=== PATIENT | male | born 1945 | race Caucasian/White ===

== ENCOUNTER → 2017-05-17 | Outpatient (CLI) | payer MEDICARE, OTHER ==
[~2017-05-17] MED LIST: APAP500; ASPIRIN81 M2 PO; AZOPT OPHTH1 %/10 M1; CALCIUM; CALCIUM 600 +1 EA11 PO; CALCIUM 600 +1 EAC5 PO; CARDIZEM CD120 MG PO; COMBIGAN EYE DR10 ML OPHTHALMIC; COUMADIN 2.5MG2.5 M1 PO; COUMADIN 4 MG TA4 M1 PO; COUMADIN 5 MG TA5 M1; CRESTOR10 MG; DIGOXIN; DYAZIDE 37.5-21 EACH PO; FELODIPINE 5 MG5 M1; FELODIPINE ER10 MG; FELODIPINE ER10 MG PO; FELODIPINE ER5 MG PO; FISH OIL 1,001000 M2 PO; FISHOIL PO; FLOMAX0.4 MG PO; GEMFIBROZIL 60600 MG PO; GLUCOPHAGE XR500 MG PO; LANOXIN 0.120.125 M3 PO; LANOXIN 0.250.25 MG PO; LIPITOR10 MG PO; LISINOPRIL20 MG PO; LISINOPRIL40 MG PO; LUMIGAN2.5 M1; MAXZIDE 75-501 EACH PO; METAMUCIL0.52 GM; METFORMIN HCL500 MG PO; MINIPRIN81 MG PO; MULTIVITAMINS PO; OSTEO BIFLEX PO; OXYIR5 MG; PERCOCET 5-3251 EACH PO; PRED FORTE 1% EY5 M1; PROPAFENONE 22225 M1 PO; PROPAFENONE HC325 M1 PO; PROTONIX40 M1 PO; RYTHMOL225 MG; SORINE 80 MG TA80 M1 PO; VIGAMOX3 M1; XALATAN2.5 ML; XALATAN2.5 ML OPHTHALMIC; [UNRECOGNIZED DRUG - OTHER] PO; [UNRECOGNIZED DRUG - REMARK] IJ
--- NOTE | 2017-05-17 17:25 | 2DMMODE ---
[place] [address] 2 D/M-MODE ECHOCARDIOGRAM Name: NATALIE BOWERS Room: [facility]#: [id number] Admission: 05/17/17 Attend Phys: Evan Contreras, Discharge: Date of : 41 Date of Service: 05/17/17 1724 Report #: [id number] THIS REPORT FOR: //name// APPROVED REPORT Study performed: 05/17/2017 10:06:00 EXAM: Comprehensive 2D, Doppler, and color-flow Echocardiogram Patient Location: Out-Patient Status: routine BSA: 2.13 HR: 60 bpm BP: 111/66 mmHg Other Information Study Quality: Good Indications Murmur 2D Dimensions LVEF(%): 51.15 (>50%) IVSd: 13.02 (7-11mm) LVOT Diam: 20.92 (18-24mm) LVDd: 48.08 mm PWd: 13.02 (7-11mm) Ascending Ao: 32.56 (22-36mm) LVDs: 35.53 (25-40mm) Aortic Root: 35.19 mm Russo's LVEF: 51.15 % Volumes Left Atrial Volume (Systole) LA ESV Index: 30.30 mL/m2 Aortic Valve AoV Peak Juan Manuel.: 1.94 m/s AO Peak Gr.: 15.11 mmHg LVOT Max P.45 mmHg AO Mean Gr.: 8.77 mmHg LVOT Mean P.71 mmHg LVOT Max V: 1.17 m/s AO V2 VTI: 41.11 cm LVOT Mean V: 0.75 m/s FRAN (VTI): 2.30 cm2 LVOT V1 VTI: 27.56 cm Mitral Valve E/A Ratio: 0.87 MV Decel. Time: 236.20 [place] [address] 2 D/M-MODE ECHOCARDIOGRAM Name: NATALIE BOWERS Room: [facility]#: [id number] Admission: 05/17/17 Attend Phys: Evan Contreras, Discharge: Date of : 41 Date of Service: 05/17/17 1724 Report #: [id number] MV E Max Juan Manuel.: 0.79 m/s MV PHT: 68.50 ms MVA (PHT): 3.21 cm2 TDI E/Lateral E': 8.78 E/Medial E': 7.90 Medial E' Juan Manuel.: 0.10 m/s Lateral E' Juan Manuel.: 0.09 m/s Pulmonary Valve PV Peak Juan Manuel.: 0.96 m/s PV Peak Gr.: 3.71 mmHg Left Ventricle The left ventricle is normal size. There is normal LV segmental wall motion. Mild concentric left ventricular hypertrophy. Left ventricular systolic function is normal. The left ventricular ejection fraction is within the normal range. LVEF is 55-60%. Grade I - abnormal relaxation pattern. Right Ventricle The right ventricle is normal size. The right ventricular systolic function is normal. Atria Left atrium is mildly dilated. The right atrium size is normal. Aortic Valve Mild aortic valve sclerosis. No aortic regurgitation is present. There is no aortic valvular stenosis. Mitral Valve The mitral valve is normal in structure. Mild mitral regurgitation. No evidence of mitral valve stenosis. Tricuspid Valve The tricuspid valve is normal in structure. Trace tricuspid regurgitation. Pulmonic Valve Pulmonic valve is not well visualized. There is no pulmonic valvular regurgitation. Great Vessels The aortic root is normal in size. IVC is normal in size and collapses with >50% [place] [address] 2 D/M-MODE ECHOCARDIOGRAM Name: ROBINSONNATALIE Darvin Room: [facility]#: [id number] Admission: 05/17/17 Attend Phys: Evan Contreras, Discharge: Date of : 41 Date of Service: 05/17/17 1724 Report #: [id number] Pericardium There is no pericardial effusion. <Conclusion> Mild concentric left ventricular hypertrophy. LVEF is 55-60%. Left atrium is mildly dilated. Mild aortic valve sclerosis. Mild mitral regurgitation. <ELECTRONICALLY SIGNED> By: Camilo Leyva MD, FACC 05/17/171723 23 23 Camilo Leyva MD, FACC /INF
== END ==
LOC: M.CRD 09:43
DX: I34.0 Nonrheumatic mitral (valve) insufficiency (principal); I51.7 Cardiomegaly; I35.8 Other nonrheumatic aortic valve disorders; I10 Essential (primary) hypertension; I95.1 Orthostatic hypotension; I48.0 Paroxysmal atrial fibrillation

== ENCOUNTER → 2017-08-01 | Outpatient (CLI) | payer MEDICARE, OTHER | LOC: M.RAD 11:34 | DX: I10 Essential (primary) hypertension (principal); R07.81 Pleurodynia ==

== ENCOUNTER 2018-12-20 19:51 | Inpatient (IN) | payer MEDICARE, OTHER ==
[~2018-12-20] VITALS: Ht 188 cm; Wt 81.6 kg
[2018-12-20 19:53] VITALS: BP 178/89
[2018-12-20] MEDS ORDERED: CLONIDINE0.1 TRANSDERM (20:03)
[2018-12-20] MEDS ORDERED: LISINOPRIL-HCT1 EAC2 PO (20:04)
[2018-12-20 20:24] LABS: ABSOLUTE BASOPHILS 0.1 thou/uL (0.0-0.2); ABSOLUTE EOSINOPHILS 0.3 thou/uL (0.0-0.7); ABSOLUTE LYMPHOCYTES 2.3 thou/uL (0.8-5.3); ABSOLUTE MONOCYTES 0.9 thou/uL (0.0-1.2); ABSOLUTE NEUTROPHILS 2.9 thou/uL (1.6-8.1); BASOPHILS 1.1 %; EOSINOPHILS 4.8 %; HEMATOCRIT 38.2 % (42.0-52.0); HEMOGLOBIN 12.8 gm/dL (14.0-18.0); LYMPHOCYTES 36.2 %; MCH 28.7 pg (26.0-34.0); MCHC 33.5 g/dL (28.0-37.0); MCV 85.8 fL (80.0-100.0); MONOCYTES 13.4 %; MPV 8.3 fl. (7.2-11.1); NUCLEATED RBCS 0 /100WBC; PLATELET COUNT* 276 thou/uL (150-400); POLYS 44.5 %; RBC 4.45 mil/uL (4.50-6.00); RDW-CV 14.2 % (10.5-14.5); WBC 6.4 thou/uL (4.0-11.0)
[2018-12-20 20:31] LABS: ANION GAP 5 mmol/L (7-16); BUN 15 mg/dL (7-18); CALCIUM 8.8 mg/dL (8.5-10.1); CHLORIDE 95 mmol/L (98-107); CO2 33 mmol/L (21-32); GLUCOSE 210 mg/dL (70-99); SODIUM 133 mmol/L (136-145)
[2018-12-20 20:34] LABS: APTT 28.9 Seconds (25.0-31.3); INR 1.6; PROTIME 16.3 Seconds (9.20-11.50)
[2018-12-20 20:40] LABS: ALBUMIN 3.3 g/dL (3.4-5.0); ALKALINE PHOSPHATASE 79 U/L (46-116); SGOT 14 U/L (15-37); SGPT 17 U/L (30-65); TOTAL BILIRUBIN 0.2 mg/dL (<0.1-1.0); TOTAL PROTEIN 7.1 g/dL (6.4-8.2); TROPONIN-I LEVEL <0.06 ng/mL (<0.06)
[2018-12-20 22:30] VITALS: BP 155/95
[2018-12-20 22:58] VITALS: BP 190/92
[2018-12-21 06:02] VITALS: BP 176/97
--- NOTE | 2018-12-21 06:03 | NUR ---
PATIENT REPORTED PAIN 11/14. GAVE FENTANYL Q4 THROUGH SHIFT, LAST DOSE 04:30. HAS BEEN NPO SINCE MIDNIGHT AND WAS NOT ABLE TO URINATE ON OWN. AT 0500 DID A BLADDER SCAN AND 500 MLS URINE RETAINED. STRAIGHT CATH ABLE TO GET 300 MLS OUT. NS RUNNING AT 100 ML/HR. ORTHO TO CONSULT TODAY. PATIENT WAS NOT ABLE TO SCOOT TO SIDE OF BED OR STAND. HE DID NOT WANT TO ATTEMPT TO GET OUT OF BED OVERNIGHT.
[2018-12-21 07:40] VITALS: BP 192/116
[2018-12-21 11:40] LABS: INR 1.4; PROTIME 14.4 Seconds (9.20-11.50)
--- NOTE | 2018-12-21 11:49 | EKG ---
[place] [address] ELECTROCARDIOGRAM REPORT Name: NATALIE BOWERS Room: [address] IN M.R.#: [id number] Admission: 12/20/18 Attend Phys: Cindy Coates MD Discharge: Date of : 41 Report #: [id number] THIS REPORT FOR: //name// [facility] ED Test Date: 2018-12-20 Test Time: 20:06:51 Pat Name: NATALIE BOWERS Department: Room: [facility] Gender: M Survey Questionnaire Designer: AJ : 1945 Requested By: Kris More Order Number: [id number] : Indra Meehan Measurements Intervals [place] Rate: 51 P: 39 MO: 202 QRS: 45 QRSD: 116 T: 27 QT: 497 QTc: 458 Interpretive Statements Sinus rhythm Nonspecific intraventricular conduction delay Compared to ECG 02/09/2017 13:45:32 Intraventricular conduction delay now present Electronically Signed On 12-21-2018 11:49:30 CDT by Indra Meehan [email or web address] <ELECTRONICALLY SIGNED> By: Indra Meehan MD, [facility] 12/21/18 1149 05 05 Indra Meehan MD, [facility] /EPI
--- NOTE | 2018-12-21 16:59 | NUR ---
SW met with pt to complete initial assessment, introduce self, and SW role. Pt alert, oriented. Pt lives at home with his who he shared works in surgery at [employer]. Pt said he watched his grandchildren frequently. Pt normally fairly independent but due to vision impairment, pt no longer drives. Pt has children and friends who are supportive and pt says friends provide rides at times. Pt unsure of dc needs at this time or if he will feel safe to return home at dc vs wondering about rehab or SNF, possibly HH to follow if pt safe to dc home when medically ready to dc. SW to continue to follow to assist with safe dc planning.
[2018-12-21 17:00] VITALS: BP 175/97
--- NOTE | 2018-12-21 17:52 | NUR ---
ASSUMED CARE OF PATIENT AT APPROX 0730. ALERT AND ORIENTED X4. PAIN MANAGED WITH IV AND ORAL PAIN MEDICATIONS. PATIENT HAD SOME NAUSEA AND VOMITING THIS MORNING, MANAGED WITH ZOFRAN AND HELD IV PAIN MEDICATION, NO MORE COMPLAINTS OF NAUSEA OR VOMITING. PATIENT UP WITH STAND BY ASIST TO THE BATHROOM SEVERAL TIME TO TRY TO VOID WITH NO SUCCESS, BLADDER SCAN REVEALED GREATER THAN 700. DR HEATH PAGED AND ORDERED TO INSERT A FELDER AND CONSULT UROLOGY. I WAS UNABLE TO INSERT A 16 GREEK FELDER BUT A 14 GREEK WAS EASILY INSERTED. PATIENT HAD 750 OUT INSTANTLY. SHOULDER IMMOBILIZER PLACED IN LEFT ARM THIS MORNING, NON WEIGHT BEARING STATUS MAINTAINED ON LEFT UPPER EXTREMITY. PATIENT RESTING IN BED AT THIS TIME AND FEELS MUCH BETTER NOW THAT HIS BLADDER IS EMPTY. FALL PRECAUTIONS IN PLACE. CALL LIGHT WITHIN REACH. HOURLY ROUNDS COMPLETED. WILL CONTINUE TO MONITOR.
[2018-12-21 19:40] VITALS: BP 187/108
[2018-12-22] VITALS: BP 176/93
[2018-12-22 04:40] LABS: HEMOGLOBIN 12.4 gm/dL (14.0-18.0); MCHC 33.5 g/dL (28.0-37.0); MCV 86.5 fL (80.0-100.0); MPV 8.8 fl. (7.2-11.1); RBC 4.28 mil/uL (4.50-6.00); RDW-CV 14.1 % (10.5-14.5); WBC 9.6 thou/uL (4.0-11.0)
[2018-12-22 04:45] LABS: INR 1.4; PROTIME 13.8 Seconds (9.20-11.50)
[2018-12-22 04:57] LABS: CALCIUM 8.5 mg/dL (8.5-10.1); CREATININE 0.6 mg/dL (0.6-1.3); MAGNESIUM 1.9 mg/dL (1.8-2.4); POTASSIUM 3.8 mmol/L (3.5-5.1)
--- NOTE | 2018-12-22 04:58 | NUR ---
PT ALERT AND ORIENTED. VSS ON RA. ASSESSMENT ODCUMENTED. PTMEDS GIVEN PER EMAR. PAIN MED GIVEN X1 THIS SHIFT. RELIEVE NOTED. NO AMBULATION NOTED THIS SHIFT. CALL LIGHT WITHIN REACH. HOURLY ROUNDINGS MADE. WILL CONTINUE TO MONITOR.
[2018-12-22 08:53] VITALS: BP 163/91
--- NOTE | 2018-12-22 10:15 | NUR ---
REHAB CONSULT NOTED, AWAIT EVAL BY WILL FOLLOW
--- NOTE | 2018-12-22 14:40 | NUR ---
PATIENT'S STATES HE IS "NOT RIGHT" AT THIS TIME. PATIENT ORIENTED X3, STATES HE WAS IN [place], REORIENTED TO PLACE. BS 183MGDL, 99.1F-101-20 119/113, 89-90%RA. O2 2L/NC, SAT UP TO MID 90s. LS NOTED DIM TO. NOTIFIED. ORDERS REC'D. ~TJRN
[2018-12-22 15:16] LABS: URINE BILIRUBIN NEGATIVE (Negative); URINE BLOOD 2+ (Negative); URINE CLARITY CLEAR; URINE COLOR YELLOW; URINE GLUCOSE-RANDOM NEGATIVE (Negative); URINE KETONES TRACE (Negative); URINE LEUKOCYTES-REFLEX NEGATIVE (Negative); URINE NITRITE-REFLEX NEGATIVE (Negative); URINE PROTEIN 1+ (Negative); URINE UROBILINOGEN 0.2 E.U./dl (0.2-1.0)
[2018-12-22 15:31] LABS: SQUAMOUS 0-3 Few /LPF (0-3)
[2018-12-22 15:32] LABS: URINE WBC-REFLEX 6-15 Few /HPF (0-5)
[2018-12-22 15:33] LABS: CASTS None Seen /LPF (None Seen); CRYSTALS None Seen /LPF (None Seen); MUCUS 0-3 Light strn/LPF (None Seen); URINE RBC 3-10 Few /HPF (0-2)
[2018-12-22 16:41] VITALS: BP 160/105
--- NOTE | 2018-12-22 18:49 | NUR ---
PATIENT ALERT AND ORIENTED X3 AT THIS TIME. O2 2L/NC 92%. REPORT FROM [facility] MECHANIC STATES PATIENT PULLING ON CATHETER, PATIENT REORIENTED. IV SITE NOTED WNL. FELDER CATH NOTED PATENT, YELLOW URINE IN BAG. SITTING UP IN RECLINER AT THIS TIME. ~TJRN
--- NOTE | 2018-12-22 18:56 | NUR ---
IMMOBILIZER IN PLACE TO LUE. HRLY ROUNDING DONE. CALL LIGHT IN REACH. ~TJRN
--- NOTE | 2018-12-22 19:05 | NUR ---
PATIENT SITTING ON SIDE OF BED, CNAs X2 STATES PATIENT BECOME WEAK, MORE CONFUSED WHEN TRANSFERRING FROM RECLINER TO BED. STATES PATIENT'S EYE ROLLED TOWARD BACK OF HEAD. PATIENT STATES THAT HE FEELS SWEATY, NO PERSPIRATION FELT. VS TAKEN AND MESSAGE SENT TO DR. Marcano.0F-70-20, 179/104, 93% 2L/NC. ORDERS REC'D. SECOND RN PRESENT. ~CHELI
[2018-12-22 20:00] VITALS: BP 199/122
[2018-12-22 22:30] VITALS: BP 171/102
[2018-12-23] VITALS: BP 183/111
[2018-12-23 01:00] VITALS: BP 149/101
[2018-12-23 03:42] LABS: INR 1.7; PROTIME 17.4 Seconds (9.20-11.50)
[2018-12-23 04:00] VITALS: BP 156/93
--- NOTE | 2018-12-23 04:32 | NUR ---
PT ORIENTED TO SELF, OTHERWISE CONFUSED THIS SHIFT. PT WAS HOWEVER ALERT AND ORIENTED ON PREVIOUS NIGHT. PT UNDERSTANDS SOMETIMES THAT HE IS CONFUSED AND VOICES AND APOLOGY EVERYTIME HE REGAINS SELF. BP WAS HIGH BEGINNING OF SHIFT. HIGHEST BP THIS SHIFT WAS 199/122, HR OF 98. HYDRALAZINE WAS ORDERED BY DR CANNON. HYDRALAZINE WAS GIVEN TWICE THIS SHIFT. BP AT 4AM WAS 156/89, HR 82. PT SEEMED ANXIOUS AND UNABLE TO SLEEP. BENADYRL AND MELATONIN GIVEN TO AID PT SLEEP. PT SLEPT AFTERWARDS AND HAS BEEN SLEEPING. HOURLY ROUNDS MADE. FALL PRECAUTION IN PLACE. UA SHOWED MODERATE URINE BACTERIA. AWAITING URINE CULTURE RESULTS. CALL LIGHT WITHIN REACH. WILL CONTINUE TO MONITOR.
[2018-12-23 08:04] VITALS: BP 147/99
[2018-12-23 16:00] VITALS: BP 113/71
--- NOTE | 2018-12-23 18:29 | NUR ---
PATIENT COOPERATIVE W/ ASSESS AND CARES THIS SHIFT. AMB X3 IN RM W/ CANE, GAIT BELT AND X2 ASST. UP TO SHOWER THIS AFTERNOON W/ X2 ASST. AMB 12-20FT EA TIME. GAIT NOTED WEAK AND UNSTEADY. IMMOBILIZER TO LUE IN PLACE. IV SL NOTED WNL, FLUSHES EASILY W/ +BLOOD RETURN. PRESENT IN THIS AFTERNOON. FELDER CATH NOTED PATENT W/ YELLOW URINE. RESTING IN BED AT THIS TIME. CALL LIGHT IN REACH. HRLY ROUNDS DONE. HOB UP TO PATIENT COMFORT. ~TJRN
[2018-12-23 19:45] VITALS: BP 134/79
--- NOTE | 2018-12-24 05:04 | NUR ---
PT SLEPT WELL THIS SHIFT. CALM APPROPRIATE. L ARM IMMOBILIZER ON. R KNEE SWOLLEN AND PAINFUL, VOLTAREN GEL APPLIED ORDERED WITH GOOD RESULT, TYLENOL GIVEN. FELDER DRAINING YELLOW URINE. RFASL IV. AM LABS DRAWN. HS ACCUCHECK 219, PT REFUSING INSULIN. EYE DROPS GIVEN ORDERED, POOR VISION. VSS. CLONIDINE PATCH STILL PRESENT L CHEST. CM FOLLOWING FOR DISCHARGE PLAN-HOME VS SNF. CALL LITE IN EASY REACH, BED ALARM ON OVERNIGHT FOR SAFETY.
[2018-12-24 05:24] LABS: HEMATOCRIT 33.8 % (42.0-52.0); HEMOGLOBIN 11.4 gm/dL (14.0-18.0); MCH 28.8 pg (26.0-34.0); MCHC 33.6 g/dL (28.0-37.0); MCV 85.6 fL (80.0-100.0); MPV 8.8 fl. (7.2-11.1); RBC 3.95 mil/uL (4.50-6.00); WBC 9.2 thou/uL (4.0-11.0)
[2018-12-24 05:30] LABS: CALCIUM 8.6 mg/dL (8.5-10.1); CREATININE 0.7 mg/dL (0.6-1.3); POTASSIUM 3.3 mmol/L (3.5-5.1)
[2018-12-24 05:31] LABS: INR 1.6; PROTIME 16.6 Seconds (9.20-11.50)
[2018-12-24 07:45] VITALS: BP 144/86
[2018-12-24 16:00] VITALS: BP 152/84
--- NOTE | 2018-12-24 18:03 | NUR ---
PATIENT ALERT AND ORIENTED X 4. VITAL SIGNS STABLE ON ROOM AIR. AFEBRILE. UP WITH WITH ASSISTANCE. TOLERATED THERAPY AND SAT IN CHAIR. LEFT ARM IMMOBILIZER ON. IV PATENT AND SALINE LOCKED. FOLET PATENT AND DRAINING YELLOW URINE. PATIENT REFUSING INSULIN. EYE DROPS GIVEN ORDERED. HOURLY ROUNDS MAINTAINED THROUGHOUT THE SHIFT. CALL LIGHT WITHIN REACH. NURSING WILL CONTINUE TO MONITOR.
[2018-12-24 21:18] VITALS: BP 175/97
[2018-12-25 04:31] LABS: INR 1.6; PROTIME 15.9 Seconds (9.20-11.50)
--- NOTE | 2018-12-25 05:44 | NUR ---
PATIENT WAS UP THROUGHOUT THE NIGHT WITH CONFUSTION TO WHERE HE WAS AND UNABLE TO LOCATE PERSONAL ITEMS. HE WAS REORIENTED TO SITUATION AND PLACE SEVERAL TIMES AND SEEMED TO REMAIN CALM AND UNDERSTOOD. I GAVE HIM 5MG OXYCODONE AT 2130 AND HE DID NOT REPORT ANY PAIN FOR THE REMAINDER OF SHIFT BUT REPORTED FEELING OUT OF IT AND CONFUSED BECAUSE OF THE DRUGS. HE REQUESTED TO USE THE COMMODE TO ATTEMPT AT BM TWICE WITH NO SUCCESS. HE SEEMED A LITTLE ANXIOUS BUT I KEPT DIRECTING HIM TO HIS PERSONAL ITEMS AND HIS WAS ABLE TO COME IN BY 0500. HE SEEMED CALM AFTER THAT. IV IS SALINE LOCKED AND MEDS ARE PO. NO WORSENING OF CONDITION. FELDER OUTPUT AT 0530 WAS 900 ML. WILL CONTINUE TO MONITOR.
[2018-12-25 10:02] VITALS: BP 141/98
--- NOTE | 2018-12-25 14:52 | NUR ---
DISCUSSED PT.WITH [facility]. SHE SAID SHE WOULD TALK WITH . ,JAIMEE,HERE AFTER WORK. DISCUSSED POC WITH HER. SHE SAID PT.IS NOT CONFUSED AT HOME. CM WILL FOLLOW.
[2018-12-25 15:55] VITALS: BP 182/135
[2018-12-25 16:37] VITALS: BP 137/75
--- NOTE | 2018-12-25 18:16 | NUR ---
ASSUMED CARE OF PATIENT AT APPROX 0730. ALERT AND ORIENTED X3. ASSESSMENT COMPLETED AND CHARTED. VSS ON ROOM AIR. PAIN MANAGED WITH ORAL PAIN MEDICATION. PATIENT SHOWING INCREASED CONFUSION THIS AFTERNOON, DID NOT KNOW WHERE HE WAS AND WAS YELLING OUT RATHER THAN USING HIS CALL LIGHT. PATIENT YELLED "HELP" SEVERAL TIMES VERY LOUDLY. I WENT TO THE ROOM AND ASKED WHY HE WAS YELLING. PATIENT STATED "I HAVE TO YELL BECAUSE NOONE WILL LISTEN." I STATED THAT I HAD JUST COME OUT OF THE ROOM A FEW MOMENTS AGO. PATIENT STATED "I WANT TO GO BACK TO MY ROOM." I STATED THAT HE IS IN HIS ROOM. PATIENT HAD NEED REORIENTATION SEVERAL TIMES THIS AFTERNOON. UNSURE IF THIS IS BASELINE BEHAVIOR AT HOME, WILL SPEAK TO WHEN SHE COMES BACK TO THE HOSPITAL. SHOULDER IMMOBILIZER IN PLACE AND NON WEIGHT BEARING STATUS MAINTAINED. FALL PRECAUTIONS IN PLACE. CALL LIGHT WITHIN REACH. HOURLY ROUNDS COMPLETED. WILL CONTINUE TO MONITOR.
[2018-12-25 22:59] VITALS: BP 173/108
[2018-12-26 04:42] LABS: CALCIUM 8.6 mg/dL (8.5-10.1); CREATININE 0.6 mg/dL (0.6-1.3); POTASSIUM 3.3 mmol/L (3.5-5.1)
[2018-12-26 04:48] LABS: HEMOGLOBIN 11.1 gm/dL (14.0-18.0); MCH 28.9 pg (26.0-34.0); MCHC 33.8 g/dL (28.0-37.0); MCV 85.7 fL (80.0-100.0); MPV 7.8 fl. (7.2-11.1); RBC 3.85 mil/uL (4.50-6.00); RDW-CV 13.7 % (10.5-14.5); WBC 8.4 thou/uL (4.0-11.0)
[2018-12-26 04:53] LABS: INR 2.1; PROTIME 20.9 Seconds (9.20-11.50)
--- NOTE | 2018-12-26 05:51 | NUR ---
PATIENT RESTED WELL THROUGH SHIFT. WOKE UP TWICE SLIGHTLY CONFUSED. ORIENTED HIM BACK TO WHERE HE WAS AND WHAT TIME IT WAS. HE STILL REFUSED INSULIN AND DID NOT REQUEST ANY PAIN MEDICATION. HIS GAIT IS STILL UNSTEADY AND REQUIRES ASSISTANCE TO GET UP. HIS FELDER OUTPUT HAS IMPROVED WITH FLOMAX. NO WORSENING OF CONDITIONS OR PAIN. HAS CLONIDINE AND LIDOCAINE PATCH STILL. WILL CONTINUE TO MONITOR.
[2018-12-26 07:20] VITALS: BP 141/85
[2018-12-26 11:30] VITALS: BP 134/94
[2018-12-26 16:00] VITALS: BP 130/90
--- NOTE | 2018-12-26 16:24 | NUR ---
SPOKE WITH ,JAIMEE, ON PHONE. DISCUSSED PLAN OF CARE . DISCUSSED PTS HELP AT HOME AT DISCHARGE IF HE WERE TO GO TO INPT.REHAB. SHE SAID SHE COULD ARRANGE FOR TIME OFF FROM WORK IF SHE KNEW OF AN APPROX DISCHARGE DATE. EXPLAINED TEAM CONFERENCES. DISCUSSED PT.'S CONFUSION AT TIMES. SHE SAID HE IS NEVER LIKE THAT AT HOME. WILL PASS ON INFORMATION TO [facility].
--- NOTE | 2018-12-26 16:30 | NUR ---
ASSUMED CARE OF PATIENT AT APPROX 0730. ASSESSMENT COMPLETED AND CHARTED. VSS ON ROOM AIR. ALERT AND ORIENTED X2-3. PATIENT IS CONFUSED ABOUT WHERE HE IS AND HAS TO BE REDIRECTED AT TIMES. SOMETIMES YELLS OUT INSTEAD OF USING CALL LIGHT. MINIMAL COMPLAINTS OF PAIN MANAGED WITH ORAL MEDICATION. PATIENT UP WITH STAFF USING GAIT BELT AND CAME. WORKING WITH THERAPIES AND PROGRESSING TOWARD GOALS. FALL PRECAUTIONS IN PLACE. CALL LIGHT WITHIN REACH. HOURLY ROUNDS COMPLETED. WILL CONTINUE TO MONITOR.
[2018-12-26 20:20] VITALS: BP 159/94
--- NOTE | 2018-12-27 06:15 | NUR ---
Oriented x 2, he gets confused and forgetful. Carlson cath has has a lot of output. L shoulder has been in immobilizer all of this shift. Potassium replaced last evening and this am it is in normal range. He denies need for pain meds. He has slept well.
[2018-12-27 08:30] VITALS: BP 138/89
--- NOTE | 2018-12-27 10:43 | NUR ---
ORDERS NOTED FOR DC TO REHAB. SPOKE WITH [facility], THEY WILL ACCEPT TODAY. UPDATED PT AND CALLED /JAIMEE TO UPDATE. PT TO GO TO RM [address] [facility] AWARE
--- NOTE | 2018-12-27 11:16 | NUR ---
Nutrition: Pt seen for LOS. Admitted with humerus FX. CHO controlled diet. Pt stated he is eating enough; it just doesn't taste very good to him. RD provided pt with a menu and explained alternative choices. Pt grateful. Wt: 180#. Noted discharge orders for today. BG 154, alb 3.3. Consider mild to low nutrition risk.
[2018-12-27 15:01] VITALS: BP 138/89
--- NOTE | 2018-12-27 15:28 | NUR ---
WOUND CARE NOTE: WAS REQUESTED TO SEE PATIENT FOR SKIN TEARS TO LEFT ARM PATIENT PRESENTS WITH PARTIAL THICKNESS SKIN LOSS TO THE POSTERIOR ASPECT OF HIS LEFT ARM. IT IS BELIEVED THAT THE IMMOBILIZER RUBBED AGAINST HIS SKIN. MOIST, PINK/RED WOUND BED. DRAINING SEROSANGUINEOUS DRAINAGE. APPROXIMATELY 2.5X5X0.1. CLEANSED WITH WOUND CLEANSER, PATTED DRY. APPLIED XEROFORM GAUZE AND SECURED WITH BORDERED FOAM. PATIENT TOLERATED DRESSING CHANGE WELL. EXTENSIVE BRUISING NOTED TO UPPER LEFT ARM AND LEFT SIDE R/T FALL. BLANCHABLE REDNESS NOTED TO LEFT UPPER BACK, UNSURE OF ETIOLOGY. NO DRAINGAE, FLUCTUANCE OR INDURATION. IT IS RAISED IN COMPARISON TO THE SURROUNDING TISSUES. RECOMMEND CHANGE DRESSING THE ARM DAILY SOFT CAST PADDING UNDERNEATH IMMOBILIZER TO ASSIST WITH PROTECTION OF SKIN
--- NOTE | 2018-12-27 16:20 | CON ---
[address] [address] CONSULTATION Name: NATALIE BOWERS Room: [address] IN M.R.#: [id number] Admission: 12/20/18 Attend Phys: Cindy Coates MD Discharge: 12/27/18 Date of : 41 Report #: [id number] THIS REPORT FOR: //name// CC: Camilo Del Rosario DATE OF SERVICE: 12/22/2018 UROLOGY CONSULTATION REASON FOR CONSULTATION: Urinary retention. HISTORY OF PRESENT ILLNESS: The patient is a 73-year-old male known to Dr. Amado with a history of prostate cancer. I reviewed his outside records from clinic. He had a prostatectomy in 2004 along with adjuvant radiation and he was on intermittent Lupron for a while, but starting in 2015, it sounds like he started Eligard continuously and is also now currently on Casodex daily. His last PSA in June was 3.4 and he had imaging around that time that showed no evidence of metastatic disease. So, the plan was to stay on Eligard and Casodex. He is actually due to see Dr. Amado this coming week. He was admitted after a fall and sustained an arm fracture. He has also subsequently developed urinary retention. Apparently, nursing had some difficulty placing catheter yesterday, but were eventually successful and has been draining fine ever since. He is currently on Flomax. PAST MEDICAL HISTORY: Prostate cancer with history above, AFib, atrial flutter, hypertension, diabetes, glaucoma. PAST SURGICAL HISTORY: Includes prostatectomy, knee surgery and shoulder surgery. ALLERGIES: HYDROCODONE. SOCIAL HISTORY: The patient is a nonsmoker currently, but previously smoked. He denies alcohol use. FAMILY HISTORY: Noncontributory. MEDICATIONS: Reviewed. Please see inpatient medical record. REVIEW OF SYSTEMS: Twelve-point review of systems is performed and is negative except as noted above in HPI. PHYSICAL EXAMINATION: VITAL SIGNS: Temperature is 36.9, pulse 78, respirations 16, [place] [address] CONSULTATION Name: NATALIE BOWERS Room: [address]#: [id number] Admission: 12/20/18 Attend Phys: Cindy Coates MD Discharge: 12/27/18 Date of : 41 Report #: [id number] 163/91. He is 97% on room air. GENERAL: He is a well-developed, well-nourished, thin white male in no acute distress. He is alert and oriented. HEENT: Normocephalic, atraumatic. RESPIRATIONS: Unlabored. HEART: Regular. ABDOMEN: Soft, nontender, nondistended. GENITOURINARY: He has a Carlson catheter in place, a 14-Yakut draining clear urine. He has some dried blood at the meatus. Testicles are unremarkable. EXTREMITIES: Without edema. He does have an arm sling in place. LABORATORY STUDIES: All reviewed. He has normal renal function. ASSESSMENT AND PLAN: 1. Urinary retention. 2. History of prostate cancer, status post prostatectomy and radiation with PSA recurrence, currently on Eligard and Casodex, follows with Dr. Amado PLAN: Leave the Carlson for now. He says he has an appointment with Dr. Amado this coming week and he can attempt a voiding trial then, would continue Flomax as an outpatient. I did take the liberty of adding Casodex to his inpatient medications as he should be on this. He is also due for Eligard injection at the time of his clinic visit. He is okay to discharge from standpoint with Carlson catheter and followup with Dr. Amado as scheduled. <ELECTRONICALLY SIGNED> By: Brionna Lui MD 12/27/18 1620 [id number] [id number] Lui MD /nt
[2018-12-27] MEDS ORDERED: CASODEX 50 MG T50 M1 PO (17:03)
[2018-12-27] MEDS ORDERED: BENADRYL25 MG PO (17:06)
[2018-12-27] MEDS ORDERED: HUMALOG100 UNIT/1 SUBQ (17:10)
[2018-12-27] MEDS ORDERED: LIDODERM1 EACH TOP (17:11)
[2018-12-27] MEDS ORDERED: MELATONIN5 M1 PO (17:14)
[2018-12-27] MEDS ORDERED: MIRALAX17 GM PO (17:15)
[2018-12-27] MEDS ORDERED: PERCOCET PO (17:19)
[2018-12-27] MEDS ORDERED: PRED FORTE 1% EY5 M1 OPHTHALMIC (17:21)
[2018-12-27] MEDS ORDERED: HYDRALAZINE 2525 MG PO (17:27)
[2018-12-27] MEDS ORDERED: TRAMADOL 50 MG50 MG PO (17:30)
[2018-12-27] MEDS ORDERED: VOLTAREN GEL 1100 G2 TOP (17:33)
--- NOTE | 2018-12-27 17:55 | NUR ---
I ASSUMED CARE OF THE PATIENT AT 0700. HE IS ALERT AND ORIENTED TO SITUATION AND SELF. A FEW SKIN TEARS ARE DISCOVERED AND ADDRESSED BY TIFFANIE WOUND CARE NURSE. BED ALARM AND CHAIR ALARM ARE ON. HOURLY ROUNDING WAS COMPLETED AND PATIENT NEEDS ARE MET. PAIN WAS MANAGED WITH PRN MEDS. PATIENT TRANSFERED TO REHAB AT 1610 AND REPORT WAS CALLED TO PIPE. BED IS IN THE LOW LOCKED POSITION AND CALL LIGHT IS IN REACH. PT ADJUSTED THE IMMOBILIZER AND PATIENT IS NOW WEARING A TSHIRT UNDER HIS IMMOBILIZER.
== END 2018-12-27 15:57 | DRG 543 ==
LOC: M.ERS 19:51 → M.TBA-ER 21:05 → M.ORTHSURG 21:05
PROVIDERS: Family Medicine; Internal Medicine; ADMIT Internal Medicine
PROC: 2W39X1Z Immobilization of Left Upper Extremity using Splint (ICD-10-PCS; principal; 2018-12-20)
DX: M80.022A Age-related osteoporosis with current pathological fracture, left humerus, initial encounter for fracture (principal); D68.69 Other thrombophilia; G93.40 Encephalopathy, unspecified; N39.0 Urinary tract infection, site not specified; E11.9 Type 2 diabetes mellitus without complications; I10 Essential (primary) hypertension; R33.9 Retention of urine, unspecified; I48.0 Paroxysmal atrial fibrillation; M17.10 Unilateral primary osteoarthritis, unspecified knee; K59.00 Constipation, unspecified; M25.461 Effusion, right knee; B95.8 Unspecified staphylococcus as the cause of diseases classified elsewhere; F03.90 Unspecified dementia, unspecified severity, without behavioral disturbance, psychotic disturbance, mood disturbance, and anxiety; Z85.46 Personal history of malignant neoplasm of prostate; Z98.42 Cataract extraction status, left eye; Z98.41 Cataract extraction status, right eye; Z88.6 Allergy status to analgesic agent; Z79.82 Long term (current) use of aspirin; Z79.899 Other long term (current) drug therapy; Z79.01 Long term (current) use of anticoagulants; W18.39XA Other fall on same level, initial encounter; Y93.89 Activity, other specified; Y92.89 Other specified places as the place of occurrence of the external cause; Y99.8 Other external cause status

== ENCOUNTER 2018-12-27 10:15 | Inpatient (IN) | payer MEDICARE, OTHER ==
[~2018-12-27] VITALS: Ht 188 cm; Wt 75.3 kg
[~2018-12-27 10:15] MED LIST changes: +CLONIDINE0.1 TRANSDERM; +LISINOPRIL-HCT1 EAC2 PO
[2018-12-27 16:10] VITALS: BP 171/103
[2018-12-27] MEDS ORDERED: CASODEX 50 MG T50 M1 PO (17:03)
[2018-12-27] MEDS ORDERED: BENADRYL25 MG PO (17:06)
[2018-12-27] MEDS ORDERED: HUMALOG100 UNIT/1 SUBQ (17:10)
[2018-12-27] MEDS ORDERED: LIDODERM1 EACH TOP (17:11)
[2018-12-27] MEDS ORDERED: MELATONIN5 M1 PO (17:14)
[2018-12-27] MEDS ORDERED: MIRALAX17 GM PO (17:15)
[2018-12-27] MEDS ORDERED: PERCOCET PO (17:19)
[2018-12-27] MEDS ORDERED: PRED FORTE 1% EY5 M1 OPHTHALMIC (17:21)
[2018-12-27] MEDS ORDERED: HYDRALAZINE 2525 MG PO (17:27)
[2018-12-27] MEDS ORDERED: TRAMADOL 50 MG50 MG PO (17:30)
[2018-12-27] MEDS ORDERED: VOLTAREN GEL 1100 G2 TOP (17:33)
[2018-12-27 20:00] VITALS: BP 152/103
[2018-12-28 07:09] VITALS: BP 134/87
[2018-12-28 09:12] LABS: HEMATOCRIT 34.4 % (42.0-52.0); HEMOGLOBIN 11.6 gm/dL (14.0-18.0); MCH 29.1 pg (26.0-34.0); MCHC 33.7 g/dL (28.0-37.0); MCV 86.2 fL (80.0-100.0); MPV 7.6 fl. (7.2-11.1); RBC 3.98 mil/uL (4.50-6.00); RDW-CV 14.2 % (10.5-14.5); WBC 7.2 thou/uL (4.0-11.0)
[2018-12-28 09:23] LABS: CREATININE 0.6 mg/dL (0.6-1.3); POTASSIUM 3.5 mmol/L (3.5-5.1)
[2018-12-28 17:59] LABS: INR 1.2; PROTIME 12.3 Seconds (9.20-11.50)
[2018-12-28 20:00] VITALS: BP 165/99
[2018-12-29 08:00] VITALS: BP 156/95
[2018-12-29 09:13] LABS: HEMATOCRIT 32.3 % (42.0-52.0); MCH 29.1 pg (26.0-34.0); MCV 85.6 fL (80.0-100.0); MPV 7.7 fl. (7.2-11.1); RBC 3.78 mil/uL (4.50-6.00); RDW-CV 13.7 % (10.5-14.5)
[2018-12-29 09:15] LABS: INR 1.3; PROTIME 12.9 Seconds (9.20-11.50)
[2018-12-29 09:17] LABS: CALCIUM 9.1 mg/dL (8.5-10.1); CREATININE 0.6 mg/dL (0.6-1.3); MAGNESIUM 1.8 mg/dL (1.8-2.4); POTASSIUM 3.5 mmol/L (3.5-5.1)
[2018-12-29 17:43] LABS: URINE BILIRUBIN NEGATIVE (Negative); URINE BLOOD 3+ (Negative); URINE CLARITY CLEAR; URINE COLOR YELLOW; URINE GLUCOSE-RANDOM NEGATIVE (Negative); URINE KETONES NEGATIVE (Negative); URINE LEUKOCYTES-REFLEX TRACE (Negative); URINE NITRITE-REFLEX NEGATIVE (Negative); URINE PROTEIN 1+ (Negative)
[2018-12-29 17:54] LABS: SQUAMOUS 0-3 Few /LPF (0-3)
[2018-12-29 17:55] LABS: BACTERIA-REFLEX None Seen /HPF (None Seen); CASTS None Seen /LPF (None Seen); CRYSTALS None Seen /LPF (None Seen); URINE RBC >20 Many /HPF (0-2); URINE WBC-REFLEX 0-5 Rare /HPF (0-5)
[2018-12-29 19:54] VITALS: BP 169/93
[2018-12-30 07:51] VITALS: BP 147/84
[2018-12-30 20:00] VITALS: BP 132/79
[2018-12-31 07:26] LABS: HEMATOCRIT 33.3 % (42.0-52.0); HEMOGLOBIN 11.1 gm/dL (14.0-18.0); MCH 28.8 pg (26.0-34.0); MCHC 33.3 g/dL (28.0-37.0); MCV 86.4 fL (80.0-100.0); MPV 6.9 fl. (7.2-11.1); RBC 3.85 mil/uL (4.50-6.00); RDW-CV 14.2 % (10.5-14.5)
[2018-12-31 07:41] LABS: CALCIUM 8.7 mg/dL (8.5-10.1); CREATININE 0.6 mg/dL (0.6-1.3); INR 1.6; MAGNESIUM 1.8 mg/dL (1.8-2.4); POTASSIUM 3.5 mmol/L (3.5-5.1); PROTIME 16.1 Seconds (9.20-11.50)
[2018-12-31 07:53] VITALS: BP 149/83
[2018-12-31 11:44] LABS: URINE BILIRUBIN NEGATIVE (Negative); URINE BLOOD 1+ (Negative); URINE CLARITY CLEAR; URINE COLOR YELLOW; URINE GLUCOSE-RANDOM NEGATIVE (Negative); URINE KETONES NEGATIVE (Negative); URINE LEUKOCYTES-REFLEX 1+ (Negative); URINE NITRITE-REFLEX NEGATIVE (Negative); URINE PROTEIN NEGATIVE (Negative); URINE SPECIFIC GRAVITY 1.015 (1.005-1.030)
[2018-12-31 11:53] LABS: SQUAMOUS NONE SEEN /LPF (0-3)
[2018-12-31 11:54] LABS: URINE RBC 3-10 Few /HPF (0-2); URINE WBC-REFLEX 6-15 Few /HPF (0-5)
[2018-12-31 11:55] LABS: CASTS None Seen /LPF (None Seen); CRYSTALS None Seen /LPF (None Seen); MUCUS None Seen strn/LPF (None Seen)
[2018-12-31 19:30] VITALS: BP 148/92
[2019-01-01 07:16] LABS: INR 1.8
[2019-01-01 08:16] VITALS: BP 137/79
[2019-01-01 20:31] VITALS: BP 140/86
[2019-01-02 04:53] LABS: INR 2.3; PROTIME 23.1 Seconds (9.20-11.50)
[2019-01-02 07:00] VITALS: BP 150/86
--- NOTE | 2019-01-02 11:32 | CON ---
[address] [address] CONSULTATION Name: NATALIE BOWERS Room: [address] IN .R.#: [id number] Admission: 12/27/18 Attend Phys: River Lanier MD Discharge: Date of : 41 Report #: [id number] THIS REPORT FOR: //name// CC: River Del Rosario DATE OF SERVICE: 01/01/2019 INFECTIOUS DISEASE CONSULTATION ATTENDING PHYSICIAN: Dr. Lanier. REASON FOR EVALUATION: Complicated urinary tract infection. HISTORY OF PRESENT ILLNESS: Chart reviewed, patient examined. This is a 73-year-old gentleman with a known history of diabetes mellitus type 2, prostate cancer, previous prostatectomy, was admitted subsequent to a fall resulting in a left humeral fracture, underwent immobilization and transferred to the rehabilitation unit. As a result of inability to void, he did have a catheter placed initially. This was removed, subsequently had difficulty voiding. Urinalysis from the last few days was otherwise unremarkable; however, repeat did show moderate pyuria and was fairly symptomatic, had to have it replaced. Urine culture is pending, been placed on ciprofloxacin. No significant pulmonary or gastrointestinal related complaints. ALLERGIES: LISTED TO VICODIN. CURRENT MEDICINES: Include clonidine, warfarin, tramadol, prednisolone ophthalmic, Erleada 60 mg, hydrochlorothiazide, tamsulosin, atorvastatin, fish oil, calcium carbonate, aspirin, dorzolamide, sliding scale insulin, metformin, sotalol. PAST MEDICAL HISTORY: As noted above, diabetes mellitus type 2, history of prostate cancer, hypertension, atrial fibrillation, previous prostatectomy. SOCIAL HISTORY: Nonsmoker, no ethanol, no illicit drug use. FAMILY HISTORY: Noncontributory. REVIEW OF SYSTEMS: Unremarkable 10-point review of systems with exception of the above history of present illness. PHYSICAL EXAMINATION: GENERAL: Appears chronically ill, mildly undernourished. He is alert, cooperative, perhaps some mild decrease in overall memory. VITAL SIGNS: Temperature 98.3, pulse 67, respirations 18, blood pressure is [facility] [address] [place] [address] CONSULTATION Name: NATALIE BOWERS Room: [address]#: [id number] Admission: 12/27/18 Attend Phys: River Lanier MD Discharge: Date of : 41 Report #: [id number] 137/79. SKIN: Warm, no rashes. HEENT: Normocephalic. Extraocular muscles intact. NECK: Supple. He has got a splint in place supporting immobilizing the left upper extremity. LUNGS: Diminished, otherwise clear breath sounds. HEART: Irregular. I do not appreciate a murmur. ABDOMEN: Soft, nontender, no peritoneal signs. GENITOURINARY: Deferred. RECTAL: Deferred. LABORATORY DATA: Most recent urinalysis on the showed 1+ blood, negative nitrites, 1+ leukocytes, 6-15 white cells, 10-30 bacteria. Electrolytes: Sodium 133, potassium 3.5, chloride 95, bicarbonate is 34, anion gap of 4, BUN and creatinine 9 and 0.6. CBC: White count of 6.0, H and H 11.1 and 33.3, platelets of 538. Urine culture is pending. ASSESSMENT AND PLAN: Pyuria with instrumentation including a Carlson catheter. We will adjust antimicrobial therapy at this point concerned about drug-drug interactions. We will await cultures. At this point, he is not overtly toxic. At some point, likely he can do without the Carlson. We will defer to Urology. <ELECTRONICALLY SIGNED> By: Ben Hernandez MD 01/02/19 1132 1037 [id number] Hernandez MD /nt
[2019-01-02 20:32] VITALS: BP 155/84
[2019-01-03 04:46] LABS: INR 2.4; PROTIME 23.4 Seconds (9.20-11.50)
[2019-01-03 08:30] VITALS: BP 131/77
[2019-01-03 19:45] VITALS: BP 147/79
[2019-01-04 05:17] LABS: INR 2.1; PROTIME 20.9 Seconds (9.20-11.50)
[2019-01-04 08:00] VITALS: BP 129/81
[2019-01-04 10:41] VITALS: BP 128/72
[2019-01-05 05:05] LABS: ABSOLUTE BASOPHILS 0.1 thou/uL (0.0-0.2); ABSOLUTE EOSINOPHILS 0.4 thou/uL (0.0-0.7); ABSOLUTE LYMPHOCYTES 1.9 thou/uL (0.8-5.3); ABSOLUTE MONOCYTES 0.9 thou/uL (0.0-1.2); ABSOLUTE NEUTROPHILS 3.1 thou/uL (1.6-8.1); BASOPHILS 0.8 %; EOSINOPHILS 6.4 %; HEMATOCRIT 30.6 % (42.0-52.0); HEMOGLOBIN 10.4 gm/dL (14.0-18.0); LYMPHOCYTES 30.5 %; MCH 28.9 pg (26.0-34.0); MCHC 33.8 g/dL (28.0-37.0); MCV 85.4 fL (80.0-100.0); MONOCYTES 13.4 %; MPV 6.9 fl. (7.2-11.1); NUCLEATED RBCS 0 /100WBC; PLATELET COUNT* 528 thou/uL (150-400); POLYS 48.9 %; RBC 3.59 mil/uL (4.50-6.00); RDW-CV 14.5 % (10.5-14.5); WBC 6.4 thou/uL (4.0-11.0)
[2019-01-05 05:12] LABS: INR 2.3; PROTIME 22.9 Seconds (9.20-11.50)
[2019-01-05 05:27] LABS: ALBUMIN 2.5 g/dL (3.4-5.0); CALCIUM 8.5 mg/dL (8.5-10.1); CREATININE 0.7 mg/dL (0.6-1.3); POTASSIUM 3.6 mmol/L (3.5-5.1); TOTAL BILIRUBIN 0.2 mg/dL (<0.1-1.0); TOTAL PROTEIN 6.5 g/dL (6.4-8.2)
[2019-01-05 08:35] VITALS: BP 149/75
[2019-01-05 19:53] VITALS: BP 150/89
[2019-01-06 04:35] LABS: PROTIME 20.2 Seconds (9.20-11.50)
[2019-01-06 08:33] VITALS: BP 132/84
[2019-01-06 19:30] VITALS: BP 131/68
[2019-01-07 05:57] LABS: INR 1.5; PROTIME 15.5 Seconds (9.20-11.50)
[2019-01-07 08:22] VITALS: BP 159/94
[2019-01-07 19:30] VITALS: BP 175/96
[2019-01-08 07:30] VITALS: BP 132/74
[2019-01-08 08:49] LABS: INR 1.7; PROTIME 17.4 Seconds (9.20-11.50)
[2019-01-08 19:30] VITALS: BP 134/78
[2019-01-09 07:19] LABS: INR 2.4; PROTIME 23.5 Seconds (9.20-11.50)
[2019-01-09 08:00] VITALS: BP 117/80
[2019-01-09 19:30] VITALS: BP 153/83
[2019-01-10 07:39] LABS: PROTIME 19.9 Seconds (9.20-11.50)
[2019-01-10 07:56] VITALS: BP 133/89
[2019-01-10 20:26] VITALS: BP 138/92
[2019-01-11 05:09] LABS: INR 1.6; PROTIME 16.4 Seconds (9.20-11.50)
[2019-01-11 08:10] VITALS: BP 151/83
[2019-01-11] MEDS ORDERED: DORZOLAMIDE 2%10 ML OPHTHALMIC (10:55)
[2019-01-11] MEDS ORDERED: ERLEADA60 MG PO (11:01)
[2019-01-11] MEDS ORDERED: [UNRECOGNIZED DRUG - OTHER] SUBQ (11:04)
[2019-01-11] MEDS ORDERED: COUMADIN 5 MG TA5 M1 PO (11:17)
[2019-01-11 11:20] VITALS: BP 151/83
[2019-01-11 11:35] VITALS: BP 151/83
[2019-01-11] MEDS ORDERED: HYDROCHLOROTHIA25 M2 PO (13:19)
[2019-01-11 13:30] VITALS: BP 151/83
== END 2019-01-11 13:30 | disposition home health service (06) | DRG 543 ==
LOC: M.REH 10:15
PROVIDERS: Internal Medicine; Specialist; ADMIT Physical Medicine & Rehabilitation
DX: M80.822A Other osteoporosis with current pathological fracture, left humerus, initial encounter for fracture (principal); D68.69 Other thrombophilia; N39.0 Urinary tract infection, site not specified; I10 Essential (primary) hypertension; R53.81 Other malaise; C61 Malignant neoplasm of prostate; R33.9 Retention of urine, unspecified; M17.10 Unilateral primary osteoarthritis, unspecified knee; K59.00 Constipation, unspecified; B95.7 Other staphylococcus as the cause of diseases classified elsewhere; E11.9 Type 2 diabetes mellitus without complications; I48.0 Paroxysmal atrial fibrillation; Z79.01 Long term (current) use of anticoagulants; Z85.46 Personal history of malignant neoplasm of prostate; Z79.4 Long term (current) use of insulin; Z79.899 Other long term (current) drug therapy; Z90.79 Acquired absence of other genital organ(s); Z88.6 Allergy status to analgesic agent; Z79.82 Long term (current) use of aspirin; Z79.84 Long term (current) use of oral hypoglycemic drugs; Z88.8 Allergy status to other drugs, medicaments and biological substances; Z87.891 Personal history of nicotine dependence

== ENCOUNTER → 2019-02-08 | Outpatient (CLI) | payer MEDICARE, OTHER ==
[~2019-02-08] MED LIST changes: +BENADRYL25 MG PO; +CASODEX 50 MG T50 M1 PO; +COUMADIN 5 MG TA5 M1 PO; +DORZOLAMIDE 2%10 ML OPHTHALMIC; +ERLEADA60 MG PO; +HUMALOG100 UNIT/1 SUBQ; +HYDRALAZINE 2525 MG PO; +HYDROCHLOROTHIA25 M2 PO; +LIDODERM1 EACH TOP; +MELATONIN5 M1 PO; +MIRALAX17 GM PO; +PERCOCET PO; +PRED FORTE 1% EY5 M1 OPHTHALMIC; +TRAMADOL 50 MG50 MG PO; +VOLTAREN GEL 1100 G2 TOP; +[UNRECOGNIZED DRUG - OTHER] SUBQ
== END ==
LOC: M.CT 13:28
DX: M80.012A Age-related osteoporosis with current pathological fracture, left shoulder, initial encounter for fracture (principal); M19.012 Primary osteoarthritis, left shoulder; M25.412 Effusion, left shoulder

== ENCOUNTER 2019-03-27 14:23 | Emergency (ER) | payer OTHER, MEDICARE ==
[~2019-03-27] VITALS: Ht 188 cm; Wt 83.9 kg
[2019-03-27 15:12] LABS: INR 1.6; PROTIME 16.5 Seconds (9.20-11.50)
[2019-03-27 15:34] VITALS: BP 151/85
== END 2019-03-27 15:34 | disposition home or self-care (01) ==
LOC: M.ERS 14:23
PROVIDERS: Physician Assistant
DX: Z04.1 Encounter for examination and observation following transport accident (principal); I10 Essential (primary) hypertension; E11.9 Type 2 diabetes mellitus without complications; I48.91 Unspecified atrial fibrillation; Z86.2 Personal history of diseases of the blood and blood-forming organs and certain disorders involving the immune mechanism; Z85.46 Personal history of malignant neoplasm of prostate; Z88.5 Allergy status to narcotic agent

== ENCOUNTER 2019-06-09 19:35 | Inpatient (IN) | payer MEDICARE, OTHER ==
[~2019-06-09] VITALS: Ht 188 cm; Wt 79.6 kg
--- NOTE | ~2019-06-09 | CON ---
[facility] [address] [place] [address] CONSULTATION Name: ROBINSONNATALIE T Room: [address] IN M.R.#: [id number] Admission: 06/09/19 Attend Phys: Dee Gurrola Discharge: Date of : 41 Report #: [id number] THIS REPORT FOR: //name// cc: Miquel Del Rosario Vincent R. DO ~ THIS REPORT FOR: //name// CC: Miquel Diggs DATE OF SERVICE: 06/10/2019 HISTORY OF PRESENT ILLNESS: This is a 73-year-old male patient on whom I had multiple discussions with multiple people involved with the care of this patient. The situation is complex. I talked to the family and they indicated that this patient had a sudden onset of headache and a CT scan evaluation indicated that this patient has a subdural hematoma as well as intracranial hemorrhage. CT scan indicated also extensive midline shift and herniation. Nurses tell me that this patient was discussed with the [facility] team and they do not want any intervention to be done. It looks like he was on anticoagulation because of his atrial fibrillation. The family is pretty clear that they want to withdraw the support. 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 REVIEW OF SYSTEMS: Positive for what looks like atrial fibrillation and what looks like a massive subdural as well as intracranial hemorrhage. He is not considered a surgical candidate. Record indicates he has a history of hypertension, diabetes, and atrial fibrillation. PAST MEDICAL HISTORY: Negative for intracranial hemorrhage. FAMILY HISTORY: Unremarkable. SOCIAL HISTORY: The patient has a daughter and the and I talked to both of them. PHYSICAL EXAMINATION: NEUROLOGIC: His examination limited, but his pupils look asymmetrical. I cannot tell about any reaction. He responds to the pain when it given to the legs, but I do not know if it is plantars or whether it is any purposeful response. VITAL SIGNS: His blood pressure is only 55/28. His pulse is 85. Temperature is 98.4. IMAGING STUDY: His CT was reviewed and is described as above. IMPRESSION: Large intracerebral hemorrhage with midline shift and herniation. The patient's prognosis is grim. The main question is whether this patient meets the criteria for brain or not. Multiple things need to be done in that regard. First his blood pressure needs to be stabilized for the brain evaluation. Secondly, he needs to be off sedation and all of it needs to be outside is body. Then, further testing will be done in this patient to determine the brain . The other problem which is causing a lot of management problems is that the family wants to withdraw the care. They are pretty clear about it, but organ donation personnel indicated that they cannot do that because of low according to them. I am not familiar with the situation and it is a difficult situation and we will let somebody else from administration address that question if they can. Medically, we will try to evaluate this patient for the brain and for that he needs to be off sedation, his blood pressure needs to be stabilized and then an EEG will be done because I think ancillary tests are necessary in this patient because clinically things are not very clear and we will try to do EEG first and then we may have to do the brain study. Thank you very much for this referral. I spent about 50 minutes of time taking care of this patient and majority was spent counseling and coordinating and reviewing his data. By: 1415 [id number] Saunders MD /nt
--- NOTE | ~2019-06-09 | EEG ---
[address] [address] EEG STUDY REPORT Name: NATALIE BOWERS Room: [address] IN M.R.#: [id number] Admission: 06/09/19 Attend Phys: Dee Gurrola Discharge: Date of : 41 Report #: [id number] THIS REPORT FOR: //name// CC: Miquel Diggs DATE OF SERVICE: 06/10/2019 This patient's EEG was done to evaluate for brain . EEG was done by placing the electrode by standard 10-20 system of electrode placement. Both referential and sequential montages were used for recording. EEG was done at 7 microvolts and the best I can tell, there is no cortical activity present. Photic stimulation is unremarkable. IMPRESSION: This is a lot of technical limitation to this EEG, but the best I can tell, the patient's EEG does not appear to be showing any definite cortical activity. However, the technical quality of the EEG is not good enough to make decision on the basis of this EEG and if ancillary tests need to be done, all other things like brain flow studies can be done. Thank you very much for this referral. By: 1629 [id number] Saunders MD /nt
--- NOTE | ~2019-06-09 | EEG ---
[address] [address] EEG STUDY REPORT Name: NATALIE BOWERS Room: [address] IN M.R.#: [id number] Admission: 06/09/19 Attend Phys: Dee Gurrola Discharge: Date of : 41 Report #: [id number] THIS REPORT FOR: //name// CC: Miquel Diggs DATE OF SERVICE: 06/11/2019 This patient is being evaluated for the possibility of brain . EEG was started at 7 microvolt. There was no cortical activity. Subsequently, it was switched to 2 microvolt. As usual, there is artifact in the EEG, but no cortical activity appeared to be present. The integrity of the recording electrodes was checked. Photic stimulation and stimulation to the patient was unremarkable. IMPRESSION: This patient's EEG does not appear to be showing any cortical activity. However, clinical correlation is recommended. By: 0819 [id number] Saunders MD /patrice
--- NOTE | ~2019-06-09 | EKG ---
[place] [address] ELECTROCARDIOGRAM REPORT Name: NATALIE BOWERS Room: [facility]#: [id number] Admission: 06/09/19 Attend Phys: Discharge: Date of : 41 Date of Service: 06/09/192006 Report #: [id number] THIS REPORT FOR: cc: Miquel Del Rosario Vincent R. DO Epiphany, Epiphany MD ~ THIS REPORT FOR: //name// [facility] ED Test Date: 2019-06-09 Test Time: 20:07:04 Pat Name: NATALIE BOWERS Department: Room: Gender: M Cant Gang [place]: [place] : 1945 Requested By: Ansley Mtz Order Number: [id number] MD: Measurements Intervals [place] Rate: 66 P: 45 IL: 185 QRS: 65 QRSD: 115 T: 53 QT: 458 QTc: 480 Interpretive Statements Sinus rhythm Nonspecific intraventricular conduction delay Minimal ST depression, anterolateral leads Compared to ECG 12/20/2018 20:06:51 ST (T wave) deviation now present [email or web address] By: 06 06 Epiphany Epiphany, /REBECCA
[2019-06-09 20:04] VITALS: BP 225/136
[2019-06-09 20:10] LABS: URINE BILIRUBIN NEGATIVE (Negative); URINE BLOOD 2+ (Negative); URINE CLARITY CLEAR; URINE COLOR YELLOW; URINE GLUCOSE-RANDOM TRACE (Negative); URINE KETONES NEGATIVE (Negative); URINE LEUKOCYTES NEGATIVE (Negative); URINE NITRITE NEGATIVE (Negative); URINE PROTEIN 1+ (Negative); URINE SPECIFIC GRAVITY 1.015 (1.005-1.030); URINE UROBILINOGEN 0.2 E.U./dl (0.2-1.0)
--- NOTE | 2019-06-09 20:15 | NUR ---
FAMILY AT BEDSIDE
[2019-06-09 20:18] LABS: HEMATOCRIT 35.3 % (42.0-52.0); HEMOGLOBIN 12.2 gm/dL (14.0-18.0); MCH 29.3 pg (26.0-34.0); MCHC 34.5 g/dL (28.0-37.0); MCV 84.9 fL (80.0-100.0); MPV 9.1 fl. (7.2-11.1); RBC 4.16 mil/uL (4.50-6.00); RDW-CV 14.1 % (10.5-14.5)
[2019-06-09 20:28] LABS: APTT 33.6 Seconds (25.0-31.3); CALCIUM 8.3 mg/dL (8.5-10.1); CREATININE 0.7 mg/dL (0.6-1.3); INR 2.2; POTASSIUM 3.6 mmol/L (3.5-5.1); PROTIME 22.1 Seconds (9.20-11.50)
[2019-06-09 20:40] LABS: ALBUMIN 3.3 g/dL (3.4-5.0); TOTAL BILIRUBIN 0.1 mg/dL (<0.1-1.0); TOTAL PROTEIN 7.5 g/dL (6.4-8.2)
--- NOTE | 2019-06-09 20:41 | NUR ---
UNALBE TO COMPLET NIH SCORE AND SWALLOW STUDY DUE TO PT BEING UNRESPONISIVE AND INTUBATED
[2019-06-09 21:23] LABS: SQUAMOUS 4-10 Moderate /LPF (0-3)
[2019-06-09 21:24] LABS: CASTS None Seen /LPF (None Seen); URINE WBC 0-5 Rare /HPF (0-5)
[2019-06-09 21:25] LABS: BACTERIA 1-9 Few /HPF (None Seen); CRYSTALS None Seen /LPF (None Seen); TRANSITIONAL EPITHEL CELL 0-3 Few /LPF (None Seen)
--- NOTE | 2019-06-09 21:35 | NUR ---
DR PEREZ DISCUSSED WITH FAMILY PTS CURRENT CONDITION AND DISCUSSED IF THEY WANTED TO EXTUBATE OR NOT AT THIS TIME. BLOOD PRESSURE CONTINUES TO INCREASE RAPIDLY THEN BOTTOM OUT. FAMILY AT BEDSIDE AND AWARE OF CURRENT STATUS
[2019-06-09 23:50] VITALS: BP 48/26
[2019-06-10] VITALS (230 sets, daily range): BP systolic 41–181; BP diastolic 19–108
[2019-06-10 04:33] LABS: pH ND (7.340-7.450)
[2019-06-10 04:34] LABS: PCO2 ND mmHg (35.0-45.0); PO2 ND mmHg (75.0-100.0)
[2019-06-10 04:35] LABS: BE ND mmol/L (-2 to +3)
[2019-06-10 04:51] LABS: BE -0.3 mmol/L (-2 to +3); PCO2 35.1 mmHg (35.0-45.0); pH 7.442 (7.340-7.450)
[2019-06-10 05:02] LABS: PO2 270.5 mmHg (75.0-100.0)
--- NOTE | 2019-06-10 06:00 | NUR ---
ADMITTED TO ICU BED 3 @ 0005, SEE ASSESSMENTS. PT NONRESPONSIVE ON VENTILATOR, NO REFLEXES PRESENT. GCS 3, MTN NOTIFIED AND CURRENTLY ON SITE. BP 40'S/20'S UPON ARRIVAL TO UNIT, PROPOFOL GTT DC'D AT THAT TIME. CLONIDINE PATCH NOTED TO L SHOULDER, PATCH REMOVED AND AREA WASHED WITH SOAP AND WATER. DOPAMINE GTT STARTED PER MTN REQUEST AND PHYSICIAN ORDER. AND SON PRESENT AT BEDSIDE UNTIL APPROXIMATELY 0200.
--- NOTE | 2019-06-10 08:30 | NUR ---
ASSUMED CARE OF PATIENT. ON DOPAMINE GTT. AND CHILDREN AT BEDSIDE. MTN ON SITE. AWAITING DR. LINTON TO ROUND.
--- NOTE | 2019-06-10 10:00 | NUR ---
DR LINTON ROUNDED AND SPOKE WITH FAMILY.
--- NOTE | 2019-06-10 11:00 | NUR ---
DR. LIVE NOTIFIED OF CONSULT. MULTIPLE ORDERS RECV'D. NOTIFIED OF LABS FROM 1930 LAST NIGHT & ABGS AT 0430 THIS AM. PICC RN NOTIFIED OF NEED FOR PICC.
--- NOTE | 2019-06-10 11:00 | NUR ---
INFORMATION TAKEN FROM CHART AND SPOKE WITH NURSING. PT.LIVES WITH HIS . C/O OF A TERRIBLE HEADACHE LAST NIGHT. WENT TO LAY DOWN. FOUND HIM UNRESPONSIVE. HE WAS INDEPENDENT AT HOME. NO USE OF DME. PAST HX OF INPT.REHAB AT [facility] AFTER A SHOULDER FX LAST YEAR. IS AN RN AND WORKS LIFE ENRICHMENT ASSISTANT. BRAIN TESTING ORDERED FOR TOMORROW. FAMILY WANTING WITHDRAW OF CARE BUT PT.WANTED ORGAN DONATION. DOES NOT HAVE A DPOA, SO BRAIN NEEDS TO BE DETERMINED PRIOR TO ORGAN DONATION.
--- NOTE | 2019-06-10 11:35 | NUR ---
RN SPOKE WITH TADEO REGARDING EEG, WELL , HECTOR WITH INFUSION TO DETERMINE PICC LINE PLACEMENT TIME AND NEED.
--- NOTE | 2019-06-10 13:00 | NUR ---
NOTIFIED PICC RN OF STAT ORDER FOR PICC PLACEMENT.
--- NOTE | 2019-06-10 14:00 | NUR ---
SPOKE W/ DR LINTON RE: EEG AND RESULTS FOR FAMILY. ORDERS RECV'D FOR NM BRAIN TESTING.
--- NOTE | 2019-06-10 14:44 | NUR ---
RIGHT BASILILC VESSEL ACCESSED FOR TRIPLE LUMEN PICC. LINE PRE-TRIMMED TO 44CM AND ADVANCED TO THE ZERO JEAN WITH NO RESISTANCE MET. UPPER ARM CIRCUMFERENCE ABOVE INSERTION SITE=11". SHERLOCK AND 3CG CONFIRMATION OF TIP TERMINATION AT THE CAVOATRIAL CUNCTION APPRECIATED. GUIDEWIRE REMOVED, LINE FLUSHED AND INSERTION SITE DRESSED. REPORTGIVEN TO MELISSA CALDERON.
--- NOTE | 2019-06-10 16:15 | NUR ---
I CALLED DR LINTON TO ASK IF HE WOULD BE COMING BACK TONIGHT BECAUSE FAMILY TIRED. HE STATED HE WOULD ROUND OR CALL LATER.
--- NOTE | 2019-06-10 16:50 | NUR ---
DR PURVIS UPDATED.
--- NOTE | 2019-06-10 18:00 | NUR ---
DR LIVE UPDATED. REPORTED LABS. ORDERS RECV'D.
[2019-06-10 18:13] LABS: HEMATOCRIT 37.3 % (42.0-52.0); HEMOGLOBIN 12.6 gm/dL (14.0-18.0); MCH 28.8 pg (26.0-34.0); MCHC 33.8 g/dL (28.0-37.0); MCV 85.2 fL (80.0-100.0); MPV 9.4 fl. (7.2-11.1); RBC 4.38 mil/uL (4.50-6.00); RDW-CV 14.1 % (10.5-14.5); WBC 15.5 thou/uL (4.0-11.0)
[2019-06-10 18:22] LABS: ALBUMIN 2.8 g/dL (3.4-5.0); CALCIUM 8.2 mg/dL (8.5-10.1); POTASSIUM 3.1 mmol/L (3.5-5.1); TOTAL BILIRUBIN 0.5 mg/dL (<0.1-1.0); TOTAL PROTEIN 6.9 g/dL (6.4-8.2)
[2019-06-10 18:23] LABS: CREATININE 1.7 mg/dL (0.6-1.3)
--- NOTE | 2019-06-10 19:00 | NUR ---
PATIENT CONTINUES ON LEVOPHED & DOPAMINE GTTS. ATTEMPTING TO WEAN DOPAMINE GTT DOWN. EVERY TIME DOPAMINE ALARMED TO BE REPLACED OR LABS DRAWN OR LINES SWITCHED TO PICC, PATIENT'S BP DROPPED VERY QUICKLY AND TOOK SEVERAL MINUTES TO REBOUND. ARRIVED TO SPEAK WITH DR. LINTON. DR LINTON NOTIFIED THAT FAMILY WAS HERE. HE TOLD ME HE HAD REPORTED EEG RESULTS TO HER VIA PHONE AND TOLD HER HE NEEDED TO PERFORM MORE CLINICAL EVALUATION. HE PLANS TO COME BACK TONIGHT.
[2019-06-11] VITALS (31 sets, daily range): BP systolic 60–140; BP diastolic 19–75
--- NOTE | 2019-06-11 07:50 | NUR ---
0718 ASSUMED CARE OF PATIENT. EEG IN PROGRESS AND DR LINTON HERE TO SEE PATIENT. PT IS UNRESTRAINED ON VENTILATOR. SEE DOCUMENTED ASSESSMENT.
[2019-06-11 07:59] LABS: HEMATOCRIT 37.6 % (42.0-52.0); HEMOGLOBIN 12.6 gm/dL (14.0-18.0); MCH 28.6 pg (26.0-34.0); MCHC 33.5 g/dL (28.0-37.0); MCV 85.4 fL (80.0-100.0); RBC 4.4 mil/uL (4.50-6.00); RDW-CV 13.6 % (10.5-14.5); WBC 18.7 thou/uL (4.0-11.0)
[2019-06-11 08:05] LABS: ALBUMIN 2.5 g/dL (3.4-5.0); CALCIUM 8.5 mg/dL (8.5-10.1); CREATININE 1.8 mg/dL (0.6-1.3); MAGNESIUM 1.5 mg/dL (1.8-2.4); POTASSIUM 3.7 mmol/L (3.5-5.1); TOTAL BILIRUBIN 0.4 mg/dL (<0.1-1.0); TOTAL PROTEIN 6.8 g/dL (6.4-8.2)
--- NOTE | 2019-06-11 09:18 | NUR ---
DR BROWN HERE TO DO APNEA TESTING.
[2019-06-11 09:23] LABS: PCO2 44.7 mmHg (35.0-45.0); pH 7.363 (7.340-7.450)
[2019-06-11 09:24] LABS: BE -0.8 mmol/L (-2 to +3); PO2 101.3 mmHg (75.0-100.0)
--- NOTE | 2019-06-11 09:41 | NUR ---
UNIT SECY STARTED APNEA TEST AT 0930. PATIENT WAS DISCONNECTED FROM THE VENTILATOR AND PLACED ON 6L VIA THE ETT. THE APNEA TEST WAS DISCONTINUED AT 09 - REPEAT ABG WAS DRAWN AND PATIENT PLACED BACK ON THE VENTILATOR. THIS RN PLACED STAT ABG ORDER IN THE COMPUTER AND CALLED THE LAB STAFF TO INFORM THEM OF TIME SENSITIVE ORDER.
[2019-06-11 09:48] LABS: BE -2.4 mmol/L (-2 to +3)
[2019-06-11 09:50] LABS: PCO2 85.8 mmHg (35.0-45.0); PO2 311.9 mmHg (75.0-100.0); pH 7.142 (7.340-7.450)
--- NOTE | 2019-06-11 10:53 | NUR ---
Nutrition: Pt admitted with hemmorhagic CVA and brain . Assessed d/t Daniel score 10, no ulcers noted. NPO. Chart reviewed. On vent. Will defer nutrition unless consulted.
--- NOTE | 2019-06-11 11:13 | NUR ---
ICU ROUNDS: APNEA STUDY BEING DONE THIS AM. BRAIN TP BE PRONOUNCED LATER AND MTN NOTIFIED. WILL CONTINUE TO FOLLOW IF CM NEEDED
--- NOTE | 2019-06-11 16:45 | CON ---
[address] [address] CONSULTATION Name: DIYAROBINSON,NATALIE Darvin Room: [address] IN M.R.#: [id number] Admission: 06/09/19 Attend Phys: Dee Gurrola Discharge: 06/11/19 Date of : 41 Report #: [id number] THIS REPORT FOR: //name// cc: Miquel Del Rosario Vincent R. DO ~ THIS REPORT FOR: //name// CC: Miquel Diggs DATE OF SERVICE: 06/11/2019 I was asked to see this 73-year-old gentleman for acute respiratory failure, vent management, critical care management. HISTORY OF PRESENT ILLNESS: The patient is currently on the ventilator and is not responsive. He had a severe headache the night before last. His was not able to wake him up and was brought to the Emergency Room and was found to have a large intracerebral hematoma. He was intubated in the Emergency Room. He is on the ventilator and he is not responsive. He is on Levophed. He is seen by Neurology, Dr. Saunders and EEG was done, which he did not believe there is any cortical activity. The patient has had some involuntary movement in his legs. He is planning to do another EEG and he requested an apnea test. While he was in the Emergency Room, [facility] was contacted, but they did not accept the patient. The patient is an organ donor. PAST MEDICAL HISTORY: Paroxysmal atrial fibrillation, on Coumadin, CVA. ALLERGIES: HYDROCODONE. MEDICATIONS: Currently, he is on levophed and dopamine SOCIAL HISTORY: Unable to obtain. The patient is not responsive. FAMILY HISTORY: Unable to obtain. He is not responsive. REVIEW OF SYSTEMS: Unable to obtain. The patient is on the ventilator and he is not responsive. PHYSICAL EXAMINATION: GENERAL: This is an elderly gentleman on the ventilator and he is not responsive. VITAL SIGNS: His O2 saturation on 40% FiO2, PEEP of 5 is 96%, respiratory rate 16, heart rate 80, and blood pressure 96/53. HEENT: Normocephalic, atraumatic. Pupils on the right side was 4 mm, on the left side was 2 mm, not responsive to light. He is orally intubated. Nose is clear. NECK: There is no lymphadenopathy or thyromegaly. CARDIOVASCULAR: Regular rate and rhythm. PMI is nondisplaced. CHEST: Inspection normal. LUNGS: There are bibasilar crackles, dullness at the bases. ABDOMEN: Soft. Bowel sounds are good. There is no mass. EXTREMITIES: There is no edema. LYMPHATICS: There is no lymphadenopathy. NEUROLOGIC: He is not responsive. LABORATORY DATA: I reviewed the following lab data: Chest x-ray shows ET tube is in good position. There are bibasilar infiltrates/atelectasis. WBC 15.5, hemoglobin 12.6, platelet 268. Sodium 136, potassium 3.1, chloride 97, CO2 29, glucose 180, BUN 26, and creatinine 1.7. Troponin less than 0.06. BNP 121, INR 2.2, PTT 33.6. His CT of head did show large lobar hematoma in the left parietal occipital, left holohemispheric subdural hematoma, moderate enlargement of right lateral ventricle. IMPRESSION: 1. Acute respiratory failure. 2. Abnormal chest x-ray. 3. Paroxysmal atrial fibrillation, on Coumadin. 4. History of hypertension. 5. Diabetes mellitus. 6. Hypotension, ? etiology. PLAN AND RECOMMENDATIONS: 1. Titrate FiO2 to keep O2 saturation 94%. 2. Continue pressors to keep mean arterial pressure more than 65. 3. Replace potassium (done). 4. Dr. Saunders's note stated that he is going to do another EEG. Dr. Lai will be manager information after the patient's EEG. Dr. Lai, the avionics shop supervisor, manager information will do apnea test. 5. Continue ventilator support. 6. The findings and recommendations were discussed with RN. Thank you very much for allowing me to participate in care of this very nice gentleman. <ELECTRONICALLY SIGNED> By: Laura Marrero MD 06/11/19 1645 [id number] [id number] Marrero MD /nt
== END 2019-06-11 09:41 | DRG 208 ==
LOC: M.ERS 19:35 → M.TBA-ER 21:52 → M.ICU 21:52
PROVIDERS: Internal Medicine; Internal Medicine Pulmonary Disease; Personal Emergency Response Attendant; ADMIT Internal Medicine
PROC: 5A1935Z Respiratory Ventilation, Less than 24 Consecutive Hours (ICD-10-PCS; principal; 2019-06-09)
PROC: 0BH17EZ Insertion of Endotracheal Airway into Trachea, Via Natural or Artificial Opening (ICD-10-PCS; principal; 2019-06-09)
PROC: 05HY33Z Insertion of Infusion Device into Upper Vein, Percutaneous Approach (ICD-10-PCS; 2019-06-10)
DX: J96.00 Acute respiratory failure, unspecified whether with hypoxia or hypercapnia (principal); I62.00 Nontraumatic subdural hemorrhage, unspecified; I61.9 Nontraumatic intracerebral hemorrhage, unspecified; G93.5 Compression of brain; R57.9 Shock, unspecified; I10 Essential (primary) hypertension; M17.10 Unilateral primary osteoarthritis, unspecified knee; K59.00 Constipation, unspecified; K46.9 Unspecified abdominal hernia without obstruction or gangrene; I48.0 Paroxysmal atrial fibrillation; E11.9 Type 2 diabetes mellitus without complications; I48.91 Unspecified atrial fibrillation; Z85.46 Personal history of malignant neoplasm of prostate; Z98.42 Cataract extraction status, left eye; Z98.41 Cataract extraction status, right eye; Z88.6 Allergy status to analgesic agent; Z86.73 Personal history of transient ischemic attack (TIA), and cerebral infarction without residual deficits; Z79.899 Other long term (current) drug therapy

== ENCOUNTER 2019-06-11 09:41 | Observation (INO) | payer OTHER ==
[2019-06-11] VITALS (50 sets, daily range): BP systolic 66–260; BP diastolic 21–179
[~2019-06-11] VITALS: Ht 188 cm; Wt 79.4 kg
--- NOTE | ~2019-06-11 | H ---
[facility] [address] [place] [address] HISTORY AND PHYSICAL Name: ROBINSON KEANE RANDY T Room: [address] Deedee Rainey#: [id number] Admission: 06/11/19 Attend Phys: [facility] Discharge: 06/12/19 Date of : 41 Report #: [id number] THIS REPORT FOR: //name// cc: Miquel Del Rosario Vincent R. DO ~ THIS REPORT FOR: //name// [facility]. No History and Physical. By: 1234Medical Records Staff JASON /MACIEL
--- NOTE | ~2019-06-11 | PROC ---
[facility] [address] [place] [address] PROCEDURE REPORT Name: ROBINSON KEANE RANDY T Room: [address] Deedee Rainey#: [id number] Admission: 06/11/19 Attend Phys: Desirae [employer] Discharge: 06/12/19 Date of : 41 Report #: [id number] THIS REPORT FOR: //name// cc: Miquel Del Rosario Vincent R. DO ~ THIS REPORT FOR: //name// [facility]. No Operative report. By: 1233Medical Records Staff JASON /MACIEL
--- NOTE | 2019-06-11 13:29 | NUR ---
1300 ADMITTED TO [facility]. FAMILY PRESENT.
[2019-06-11 14:18] LABS: ABSOLUTE BASOPHILS 0.1 thou/uL (0.0-0.2); ABSOLUTE EOSINOPHILS 0.5 thou/uL (0.0-0.7); ABSOLUTE LYMPHOCYTES 2.6 thou/uL (0.8-5.3); ABSOLUTE MONOCYTES 1.1 thou/uL (0.0-1.2); ABSOLUTE NEUTROPHILS 9.9 thou/uL (1.6-8.1); BASOPHILS 0.5 %; EOSINOPHILS 3.7 %; HEMATOCRIT 34.7 % (42.0-52.0); HEMOGLOBIN 11.8 gm/dL (14.0-18.0); LYMPHOCYTES 18.5 %; MCHC 34.1 g/dL (28.0-37.0); MCV 85.1 fL (80.0-100.0); MONOCYTES 7.8 %; MPV 8.9 fl. (7.2-11.1); NUCLEATED RBCS 0 /100WBC; PLATELET COUNT* 236 thou/uL (150-400); POLYS 69.5 %; RBC 4.08 mil/uL (4.50-6.00); RDW-CV 13.9 % (10.5-14.5); WBC 14.3 thou/uL (4.0-11.0)
[2019-06-11 14:22] LABS: URINE BILIRUBIN NEGATIVE (Negative); URINE BLOOD 1+ (Negative); URINE CLARITY CLEAR; URINE COLOR YELLOW; URINE GLUCOSE-RANDOM NEGATIVE (Negative); URINE KETONES NEGATIVE (Negative); URINE LEUKOCYTES-REFLEX NEGATIVE (Negative); URINE NITRITE-REFLEX NEGATIVE (Negative); URINE PROTEIN 1+ (Negative); URINE SPECIFIC GRAVITY <= 1.005 (1.005-1.030); URINE UROBILINOGEN 0.2 E.U./dl (0.2-1.0)
[2019-06-11 14:28] LABS: INR 2.4; PROTIME 24.3 Seconds (9.20-11.50)
[2019-06-11 14:32] LABS: APTT 44.5 Seconds (25.0-31.3)
[2019-06-11 14:33] LABS: ALBUMIN 2.1 g/dL (3.4-5.0); CALCIUM 8.4 mg/dL (8.5-10.1); CREATININE 2.4 mg/dL (0.6-1.3); DIRECT BILIRUBIN 0.2 mg/dL (<0.1-0.3); MAGNESIUM 1.6 mg/dL (1.8-2.4); PHOSPHORUS* 5.6 mg/dL (2.5-4.9); POTASSIUM 3.9 mmol/L (3.5-5.1); TOTAL BILIRUBIN 0.5 mg/dL (<0.1-1.0); TROPONIN-I LEVEL 0.49 ng/mL (<0.06)
[2019-06-11 14:36] LABS: BACTERIA-REFLEX >30 Many /HPF (None Seen); CASTS None Seen /LPF (None Seen); CRYSTALS None Seen /LPF (None Seen); SQUAMOUS 0-3 Few /LPF (0-3); URINE RBC 0-2 Rare /HPF (0-2); URINE WBC-REFLEX 6-15 Few /HPF (0-5)
--- NOTE | 2019-06-11 15:53 | NUR ---
TWO RNS, AMBROSIO AND AURELIANO, VERIFIED BLOOD PRODUCTS AT THE BEDSIDE WITH THE PATIENT. VITAL SIGNS WILL NOT APPEAR THE PATIENT WAS TAKEN EMERGENTLY TO THE IR SUITE FOR A LIVER BIOPSY.
--- NOTE | 2019-06-11 16:56 | NUR ---
1600 TO IR FOR LIVER BIOPSY PER BED WITH RT AND IR PERSONNEL. FFP INFUSING
--- NOTE | 2019-06-11 16:57 | NUR ---
1640 BACK FROM IR. SEE ICU VITAL SIGNS. RIGHT JUGULAR DRESSING CLEAN DRY AND INTACT
--- NOTE | 2019-06-11 17:32 | NUR ---
GOALS HAVE CHANGED FOR THIS PATIENT. PATIENT IS NOW UNDER CARE OF [facility]. RECIEVED FLUID BOLUS AND WEANING PRESSORS. LIVER BIOPSY COMPLETED. FAMILY HAS BEEN UPDATED AND INFORMED
[2019-06-11 20:42] LABS: HEMOGLOBIN 12.2 gm/dL (14.0-18.0); MCH 28.6 pg (26.0-34.0); MCHC 33.8 g/dL (28.0-37.0); MCV 84.7 fL (80.0-100.0); MPV 8.9 fl. (7.2-11.1); NUCLEATED RBCS 0 /100WBC; PLATELET COUNT* 245 thou/uL (150-400); RBC 4.25 mil/uL (4.50-6.00); RDW-CV 13.9 % (10.5-14.5); WBC 19.5 thou/uL (4.0-11.0)
[2019-06-11 20:51] LABS: ALBUMIN 2.6 g/dL (3.4-5.0); CALCIUM 9.4 mg/dL (8.5-10.1); CREATININE 1.9 mg/dL (0.6-1.3); DIRECT BILIRUBIN 1.4 mg/dL (<0.1-0.3); MAGNESIUM 1.7 mg/dL (1.8-2.4); POTASSIUM 4.6 mmol/L (3.5-5.1); TOTAL BILIRUBIN 1.7 mg/dL (<0.1-1.0); TOTAL PROTEIN 7.1 g/dL (6.4-8.2)
[2019-06-11 20:56] LABS: APTT 38.3 Seconds (25.0-31.3); INR 1.2; PROTIME 12.5 Seconds (9.20-11.50)
[2019-06-11 21:30] LABS: BE -4.4 mmol/L (-2 to +3); PCO2 46.1 mmHg (35.0-45.0)
[2019-06-11 21:37] LABS: pH 7.299 (7.340-7.450)
[2019-06-11 21:38] LABS: PO2 306.1 mmHg (75.0-100.0)
[2019-06-11 21:58] LABS: ABSOLUTE MONOCYTES 0.4 thou/uL (0.0-1.2); ABSOLUTE NEUTROPHILS 17.2 thou/uL (1.6-8.1)
[2019-06-11 21:59] LABS: PLATELET ESTIMATE ADEQUATE
[2019-06-12] VITALS (28 sets, daily range): BP systolic 71–156; BP diastolic 50–91
[2019-06-12 02:17] LABS: ABSOLUTE LYMPHOCYTES 1.1 thou/uL (0.8-5.3); ABSOLUTE MONOCYTES 1.4 thou/uL (0.0-1.2); ABSOLUTE NEUTROPHILS 19.5 thou/uL (1.6-8.1); BASOPHILS 0.1 %; HEMATOCRIT 35.3 % (42.0-52.0); HEMOGLOBIN 11.9 gm/dL (14.0-18.0); LYMPHOCYTES 4.8 %; MCH 28.7 pg (26.0-34.0); MCHC 33.7 g/dL (28.0-37.0); MCV 85.1 fL (80.0-100.0); MONOCYTES 6.5 %; MPV 8.8 fl. (7.2-11.1); NUCLEATED RBCS 0 /100WBC; PLATELET COUNT* 253 thou/uL (150-400); POLYS 88.6 %; RBC 4.15 mil/uL (4.50-6.00); RDW-CV 14.1 % (10.5-14.5)
[2019-06-12 02:48] LABS: ALBUMIN 2.4 g/dL (3.4-5.0); CREATININE 1.7 mg/dL (0.6-1.3); DIRECT BILIRUBIN 0.5 mg/dL (<0.1-0.3); MAGNESIUM 1.8 mg/dL (1.8-2.4); POTASSIUM 4.9 mmol/L (3.5-5.1); TOTAL BILIRUBIN 0.8 mg/dL (<0.1-1.0); TOTAL PROTEIN 6.9 g/dL (6.4-8.2)
[2019-06-12 02:57] LABS: APTT 38.3 Seconds (25.0-31.3); INR 1.1; PROTIME 11.6 Seconds (9.20-11.50)
[2019-06-12 08:09] LABS: BE -3.7 mmol/L (-2 to +3)
[2019-06-12 08:11] LABS: ABSOLUTE LYMPHOCYTES 1.2 thou/uL (0.8-5.3); ABSOLUTE MONOCYTES 1.2 thou/uL (0.0-1.2); ABSOLUTE NEUTROPHILS 16.7 thou/uL (1.6-8.1); BASOPHILS 0.2 %; HEMATOCRIT 33.8 % (42.0-52.0); HEMOGLOBIN 11.2 gm/dL (14.0-18.0); LYMPHOCYTES 6.4 %; MCH 28.9 pg (26.0-34.0); MCHC 33.1 g/dL (28.0-37.0); MCV 87.2 fL (80.0-100.0); MONOCYTES 6.5 %; MPV 8.7 fl. (7.2-11.1); NUCLEATED RBCS 0 /100WBC; PLATELET COUNT* 241 thou/uL (150-400); POLYS 86.9 %; RBC 3.87 mil/uL (4.50-6.00); RDW-CV 14.1 % (10.5-14.5); WBC 19.2 thou/uL (4.0-11.0)
[2019-06-12 08:14] LABS: pH 7.257 (7.340-7.450)
[2019-06-12 08:15] LABS: PCO2 54.7 mmHg (35.0-45.0); PO2 286.7 mmHg (75.0-100.0)
[2019-06-12 09:53] LABS: PCO2 46.6 mmHg (35.0-45.0); pH 7.322 (7.340-7.450)
[2019-06-12 09:54] LABS: BE -2.6 mmol/L (-2 to +3)
[2019-06-12 10:03] LABS: CREATININE 1.5 mg/dL (0.6-1.3); POTASSIUM 4.6 mmol/L (3.5-5.1)
[2019-06-12 10:05] LABS: ALBUMIN 2.1 g/dL (3.4-5.0); DIRECT BILIRUBIN 0.3 mg/dL (<0.1-0.3); MAGNESIUM 1.9 mg/dL (1.8-2.4); TOTAL BILIRUBIN 0.5 mg/dL (<0.1-1.0); TOTAL PROTEIN 6.7 g/dL (6.4-8.2)
[2019-06-12 10:06] LABS: PO2 293.8 mmHg (75.0-100.0)
[2019-06-12 10:07] LABS: ALBUMIN 2.1 g/dL (3.4-5.0); DIRECT BILIRUBIN 0.3 mg/dL (<0.1-0.3); TOTAL BILIRUBIN 0.5 mg/dL (<0.1-1.0); TOTAL PROTEIN 6.5 g/dL (6.4-8.2)
[2019-06-12 10:13] LABS: URINE BILIRUBIN NEGATIVE (Negative); URINE BLOOD 1+ (Negative); URINE CLARITY CLEAR; URINE COLOR YELLOW; URINE GLUCOSE-RANDOM 2+ (Negative); URINE KETONES NEGATIVE (Negative); URINE LEUKOCYTES-REFLEX NEGATIVE (Negative); URINE NITRITE-REFLEX NEGATIVE (Negative); URINE PROTEIN 2+ (Negative); URINE SPECIFIC GRAVITY 1.025 (1.005-1.030); URINE UROBILINOGEN 0.2 E.U./dl (0.2-1.0)
[2019-06-12 10:26] LABS: SQUAMOUS 0-3 Few /LPF (0-3); URINE RBC 0-2 Rare /HPF (0-2); URINE WBC-REFLEX 0-5 Rare /HPF (0-5)
[2019-06-12 10:27] LABS: BACTERIA-REFLEX 1-9 Few /HPF (None Seen); MUCUS 0-3 Light strn/LPF (None Seen)
[2019-06-12 10:28] LABS: COARSE GRANULAR CASTS 4-10 Moderate /LPF (None Seen); HYALINE CASTS 0-3 Few /LPF (None Seen)
[2019-06-12 10:28] LABS: APTT 39.7 Seconds (25.0-31.3); INR 1.1; PROTIME 11.3 Seconds (9.20-11.50)
[2019-06-12 10:29] LABS: CRYSTALS None Seen /LPF (None Seen)
--- NOTE | 2019-06-12 20:22 | NUR ---
TRANSPORTER FIRST CALL HERE TO TILE AND MARBLE INSTALLER BODY; TILE AND MARBLE INSTALLER TIME 2009.
--- NOTE | 2019-06-17 17:07 | PATH ---
[address] [address] PATHOLOGY RPT PROCEDURE Name: NATALIE BOWERS Room: [address] Redd#: [id number] Admission: 06/11/19 Date of : 41 Discharge: 06/12/19 Report #: [id number] Path Case #: [id number] [facility] Accession Number: [id number] . 01 Material submitted: . PART A: liver - LIVER BIOPSY -FS PART B: lymph node - HARD PELVIC LYMPH NODE - FS . 02 Frozen section diagnosis: . FROZEN SECTION DIAGNOSIS: (Eze Wisdom M.D.) . FSA1. Liver tissue: - Less than 20% microvesicular steatosis. - Less than 10% macrovesicular steatosis, no presence of cellular infiltrates consistent with active inflammation, no presence of cirrhosis, no presence of bridging fibrosis, no prominence of necrosis secondary to hypotension. . A green sheet provided by [facility] is filled out and released for the medical record and the findings are relayed to the surgeon in the operating room. . FSB1/TPB1. 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 . A green sheet is filled out for [facility] and submitted for medical record and results are telephoned to Dr. Dykes at the [facility]. . . FROZEN SECTION GROSS DESCRIPTION: A. Received fresh from the operating room accompanied by a label marked "[facility], Yordan, Natalie T." and "liver biopsy" is a tube containing jamari colored tissue typical of liver. The tissue measures 1.4 x 0.6 x 0.5 cm and intraoperative evaluation is requested prior to transplantation. The specimen is bisected and one-half is submitted for frozen studies with the remainder of that tissue frozen submitted in cassette A1 and the remaining half entirely submitted in cassette A2. . B. Received fresh from the operating room accompanied by a label marked "Yordan Perkins Randy T, hard pelvic lymph node" and consists of a firm, smooth mass of light mccabe tissue measuring 3.0 x 1.8 x 1.5 cm. The surgeon notes encountering this unexpectedly and that the patient has a history of prostate cancer and he requests intraoperative evaluation. The specimen is serially sectioned and a business office representative section submitted for frozen studies and touch preps also obtained and the remainder of that tissue frozen is submitted in cassette B1. Additional business office representative sections are submitted in cassettes B2 and B3. (ERMA/db; 06/11/2019) [place] [address] PATHOLOGY RPT PROCEDURE Name: NATALIE BOWERS Room: [address] Deedee Rainey#: [id number] Admission: 06/11/19 Date of : 41 Discharge: 06/12/19 Report #: [id number] Path Case #: [id number] . Frozen sections performed at [facility], [address] [place] [address]. BS/LBQ . 02 Diagnosis: A. Liver biopsy: - Benign liver without bridging fibrosis or cirrhosis, with less than 10% macro-vesicular steatosis, less than 20% micro-vesicular steatosis and with mild non-specific chronic inflammation in portal tracts. . B. 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 SEE COMMENT. (ERMA:[facility] 06/17/2019) [facility] 06/17/2019 1011 Local . 02 Comment: Most of the lymph node (specimen B) is replaced by neoplasm infiltrating as cords, sheets and occasional glands and with prominent tumor necrosis. Properly controlled immunohistochemical stains performed on B2 show the neoplastic cells to be positive for PSA as well as prostatic acid phosphatase, supporting the diagnosis. . Specimen B reviewed with Dr. Bradly Norton who agrees with the diagnosis. (ERMA:[facility] 06/17/2019) . 02 Electronically signed: . Olegario Wisdom MD, Pathologist NPI- [id number] . 01 Gross description: . SEE FROZEN SECTION GROSS DESCRIPTION. /LBQ 06/13/2019 0938 Local . 02 Pathologist provided ICD-10: K76.9, C77.5 . 02 CPT . 380185, 024823, T49268, D40884, 977989, 323589 Specimen Comment: A courtesy copy of this report has been sent to [phone] Specimen Comment: Report sent to DR DE LOS SANTOS Performed at: 01 [facility] [address], [place], [place] [id number] MD Cesar Davis MD Phone: [phone] Performed at: [address] [place] [address] PATHOLOGY RPT PROCEDURE Name: NATALIE BOWERS Room: [address] Deedee M.R.#: [id number] Admission: 06/11/19 Date of : 41 Discharge: 06/12/19 Report #: [id number] Path Case #: [id number] [facility] [address] [place] Thompson, [place], [place] [id number] MD Olegario Wisdom MD Phone: [phone]
== END 2019-06-12 20:10 ==
LOC: M.ICU 09:41 → M.TBA 06-12 13:00